=== PATIENT | female | born 2000 | race African-American/Black ===

== ENCOUNTER 2022-03-07 19:40 | Emergency (ER) | payer BC ==
[~2022-03-07] VITALS: Ht 157.5 cm; Wt 50.5 kg
[2022-03-07 19:46] VITALS: BP 120/81
== END 2022-03-07 22:43 | disposition left against medical advice (07) ==
LOC: ER 19:41
DX: Z04.1 Encounter for examination and observation following transport accident (principal); Z53.21 Procedure and treatment not carried out due to patient leaving prior to being seen by health care provider; V89.2XXA Person injured in unspecified motor-vehicle accident, traffic, initial encounter; Y93.89 Activity, other specified; Y92.89 Other specified places as the place of occurrence of the external cause; Y99.8 Other external cause status
CPT/HCPCS: 73030